=== PATIENT | female | born 1950 | race Caucasian/White ===

== ENCOUNTER 2024-10-07 08:48 | Day surgery (SDC) | payer MEDICARE, BC, SELFPAY ==
[2024-10-07] VITALS (11 sets, daily range): BP systolic 94–158; BP diastolic 59–88; PULSE 80–97; RESP 16; TEMP 36.2–37.1; O2SAT 94–100; BMI 30.9
--- OUTSIDE RECORDS SUMMARY | 2024-10-07 08:52 | XMS_ITS | Data Portability ---
Author Organization [place] [facility] Address [address] [address] [place] [address] Care Team Providers Care Barrel Finisher Name Role Phone JUANLYDIA Primary Care Provider [phone] Assessment Encounter Date Assessment Date Assessment LastModified by Organization Details LastModified Time 09/23/2019 09/23/2019 Today I spent a considerable amount of time discussing the patients past medical and personal history, as well as performing a physical examination all of which is documented in it's entirety in the electronic health record. I reviewed the findings with the patient. Treatment options to address her complaints were discussed. Today no imaging was obtained. I've not recommended advanced imaging with CT or MRI. From a treatment perspective I've recommended adding 300 mg of gabapentin midmorning. Currently she is taking one to two tablets of Tylenol with every dose of gabapentin. I suggested she try taking the additional gabapentin 300 mg without tylenol. She can take up to 1800 mg daily in divided doses. I also suggested she keep a pain journal of her level of pain, intensity and duration with added gabapentin use. JUANY was checked today and no adjustments were made to the appliance. I have suggested she send me an update in about a month regarding her symptoms. Follow-up was recommended in a year or sooner if needed. Today greater than 50% of the 25 minute visit was spent counseling and coordinating care. This may have included a review of the diagnosis, contributing factors, medication MOA, risks, side effects, home self-management strategies and the limitations and expectations. [email or web address] Not available 09/23/2019 13:29:41 09/19/2020 09/19/2020 Today I reviewed the diagnosis, contributing factors and treatment options. I reviewed and reinforced continued use of self care and home exercises. I've encouraged daily home care use which may consist of heat and ice compresses, oral habit reduction and relaxation techniques. The intraoral appliance did not require additional adjustment. I suggested that Sarai consult with Dr. 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 Today a prescription for gabapentin 400 mg qid, was provided to the patient. The risks and benefits associated with the prescribed medication was discussed with the patient today. Patient was asked to discontinue medication intake and return to clinic if significant side effects were noted from the medication. I've suggested that the patient return for follow-up care annually or PRN sooner. Today greater than 50% of the 25 minute visit was spent counseling and coordinating care. This may have included a review of the diagnosis, contributing factors, home self-management strategies and the limitations and expectations. Not available 09/19/2020 19:36:20 01/17/2021 01/17/2021 Today I reviewed the diagnosis, contributing factors and treatment options. I reviewed and reinforced continued use of self care and home exercises. I've encouraged daily home care use which may consist of heat and ice compresses, oral habit reduction and relaxation techniques. The intraoral appliance did not require additional adjustment. I explained to Sarai that based on today's exam, I would recommend she consult with an in house counsel to rule-out cracked tooth #3. I explained that myofascial pain could also contribute to tooth pain but that I would first rule out tooth pathology of #3. Sarai will contact her dentist for a referral to an in house counsel. Sarai is still interested in consulting with Dr. 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 History today was obtained from the patient. The patient has 5+ diagnoses they would like to address. Their symptoms are chronic. This case is moderate complexity because of multiple diagnoses with chronic symptoms. Data reviewed included: procedure documentation. Risk of complications including disease progression were discussed. Today time spent may have included a review of past records, history taking, review of diagnoses, contributing factors, treatment plan, diagnostic testing, prognosis, expectations, risks and complications of treatment/no treatment, discussions with other providers and completing documentation was 35 minutes. Not available 01/20/2021 14:00:14 Plan of Treatment Reminders Order Date Submit Date Provider Last Modified By Organization Details Last Modified Time Details Appointments None recorded. Lab None recorded. Referral neurologis t referral 2019 [email or web address] Not available 0 15:19:41 Procedures None recorded. Surgeries None recorded. Imaging None recorded. Medication Orders gabapentin 300 mg capsule 2019 [id number], [address] [place], [place], [id number], 0 15:19:52 tramadol 50 mg tablet 2020 [id number], [address] [place], [place], [phone], 1 08:44:03 Patient TargetsNo targets recorded. Patient Instructions Encounter Date Encounter Id Patient Instructions Last Modified By Organization Details Last Modified Time 04/25/2021 [id number] Sarai Manning is a 71 year-old female with over 10 years of localized neuropathic pain in the right lower jaw region. The pain is located approximately where she had a crown procedure a few weeks before. I suspect there was some injury to a branch of the Mandibular trigeminal nerve. She gets pretty good relief with acetaminophen taking 2 ES tabs BID. but that lasts just a few hours. She would like to get to the bottom of the problem if possible and would like to not have to take Tylenol every day if possible. She has some T3 she takes very rarely that is not very effective and asked about some resuce med that might work better than Tyklenol or codeine. I offered a trial of tramadol to use rarely (e.g. #20 per month) for more severe flares of pain. Wew will get an MRI scan of the brain looking for trigeminal nerve compression or injury. future considerations could include an alternative medication like oxcarbazepine or carbamazepine. [email or web address] Not available 04/29/2021 09:10:15 08/29/2021 [id number] I reviewed her M RI scan report of the brain with her today. It was normal. [email or web address] Not available 08/29/2021 13:07:21 Stable neuropath ic pain affecting the right lower jaw line following crown and root canal in 2009. Acetaminophen is working pretty well. I will discharge her from clinic for now, but if pain increases or she wants to pursue other meds like CBZ or Trileptal, she can call. [email or web address] Not available 08/29/2021 13:08:18 Reason for Referral Neurologist Referral for Tri geminal nerve disorder Evaluation of current meds. Has been using for years without improvement. 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 7 11:08:15 Open bite 21766626 Active [address] [facility] 7 11:08:27 Toothache 57044744 Active 2020 #[address] [facility] 1 13:59:44 Trigeminal nerve disorder 76232465 Active 2014 Not Available [facility] 6 02:32:51 Fibromyosi tis 30846969 Active 2012 Not Available [facility] 6 02:43:53 Arthralgia of temporoman dibular joint 64033903 Active 2014 Not Available [facility] 6 02:43:53 Finding of sensation by site 924820277 Completed 201408/31/[address] [facility] 8 13:37:45 Problem Notes None recorded. Procedures Surgical History Date Name Laterality Status Provider Name and Address Organization Details Recorded Time 07/17/20 17 Oral appliance completed [facility] 07/17/2017 15:03:29 01/02/20 09 Other completed Mike Am[address] [facility] 01/17/2021 15:35:12 Warba Teeth Extraction completed Luciana Roberts [facility] 08/29/2021 12:38:51 [facility] 07/03/2017 10:34:[address] [facility] 07/03/2017 10:34:17 Elbow arthroscopy/surge ry completed Claramolly Crouch [facility] 08/26/2017 14:30:29 Imaging Results None recorded. Procedure Notes None recorded. Medical Equipment None Reported. Allergies Allergen ID Allergen Name Allergen Category Reaction Reaction Severity Criticality Documentation Date Start Date Code Code System Note Provider Name and Address Organization Details Recorded Time 46397 Substance with sulfonami de structure and antibacte rial mechanism of action (substanc e) medicatio n Not available Not available Not available 10/10/2016 64661 8003 SNOMED Not Available [facility] 6 06:37:57 Medications Name Sig Start Date Stop Date Status Note LastModified by Organization Details LastModified Time medication refill request 09/23 completed Not Available Not Available Not Available cyclobenzap rine 10 mg tablet TAKE 1 TABLET BY MOUTH EVERY NIGHT AT BEDTIME NEEDED active Not Available Not Available No t Available latanoprost 0.005 % eye drops INSTILL 1 DROP IN LEFT EYE EVERY EVENING active Not Available Not Available No t Available pravastatin 40 mg tablet TAKE 1 TABLET BY MOUTH DAILY WITH THE EVENING MEAL active Not Available Not Available No t Available meloxicam 15 mg tablet 04/25 completed Not Available Not Available Not Available acetaminoph en 300 mg-codeine 30 mg tablet PRN active Not Available Not Available Not Available tramadol 50 mg tablet TAKE 1 TABLET BY MOUTH EVERY 6 HOURS NEEDED active Not Available Not Available No t Available amoxicillin 875 mg tablet TAKE 1 TABLET BY MOUTH TWICE DAILY 08/23 completed Not Available Not Available Not Available prednisolon e acetate 1 % eye drops,suspe nsion prn active Not Available Not Available Not Available amitriptyli ne 10 mg tablet Take 1 tablet every day by oral route at bedtime. 08/21 completed Not Available Not Available Not Available benzonatate 100 mg capsule 08/21 completed Not Available Not Available Not Available lisinopril 10 mg tablet TAKE 1 TABLET BY MOUTH EVERY DAY active Not Available Not Available No t Available gabapentin 300 mg capsule TAKE 1 CAPSULE BY MOUTH BID 08/23 completed Not Available Not Available Not Available triamterene 37.5 mg-hydrochl orothiazide 25 mg tablet TAKE 1 TABLET BY MOUTH EVERY DAY active Not Available Not Available No t Available fluocinonid e 0.05 % topical solution JOSIANE EXT AA BID active Not Available Not Available No t Available fluocinonid e 0.05 % topical cream active Not Available Not Available Not Available atropine 1 % eye drops PRN active Not Available Not Available Not Available levothyroxi ne 112 mcg tablet TAKE 1 TABLET BY MOUTH ONCE A DAY active Not Available Not Available No t Available amoxicillin 875 mg-potassiu m clavulanate 125 mg tablet 08/21 completed Not Available Not Available Not Available metronidazo le 1 % topical gel APPLY EXTERNALL Y TO THE AFFECTED AREA ONCE EVERY DAY active Not Available Not Available No t Available Shingrix (PF) 50 mcg/0.5 mL intramuscul ar suspension, kit 09/23 completed Not Available Not Available Not Available Vitals Date Recorded Heart rate Systolic blood pressure Diastolic blood pressure Provider Name and Address Organization Details Last Updated DateTime 09/23/2019 97 /min 144 mm[Hg] 91 mm[Hg] Mike Amador [facility] 09/23/2019 12:17:00 Date Recorded Body height Body mass index (BMI) Body weight Body temperature Heart rate Systolic blood pressure Diastolic blood pressure Provider Name and Address Organization Details Last Updated DateTime 0 170.18 cm 29.8 kg/m2 09048.5 5 g 97 [degF] 100 /min 148 mm[Hg] 87 mm[Hg] Bassem Lopez [facility] 0 14:09:37 Date Recorded Body height Body temperature Heart rate Systolic blood pressure Diastolic blood pressure Provider Name and Address Organization Details Last Updated DateTime 01/17/2021 170.18 cm 97.3 [degF] 95 /min 148 mm[Hg] 95 mm[Hg] Mike Amador [facility] 1 15:34:54 Date Recorded Body height Body temperature Body mass index (BMI) Body weight Heart rate Systolic blood pressure Diastolic blood pressure Provider Name and Address Organization Details Last Updated DateTime 1 170.18 cm 97.3 [degF] 29 kg/m2 31524.5 9 g 99 /min 137 mm[Hg] 78 mm[Hg] Luciana Roberts [facility] 1 14:43:26 Date Recorded Body height Body mass index (BMI) Body weight Heart rate Body temperature Systolic blood pressure Diastolic blood pressure Provider Name and Address Organization Details Last Updated DateTime 1 170.18 cm 29 kg/m2 92119.5 9 g 110 /min 97.6 [degF] 148 mm[Hg] 84 mm[Hg] Luciana Roberts [facility] 12:38:20 Social History Question Answer Notes LastModified by Organizat ion Details LastModified Time Tobacco Smoking Status [facility] 08/26/2017 14:26:17 What Is Your Level Of Alcohol Consumption? Occasional Information not available 08/26/2017 Auto Related Injury? No Information not available 08/29/2021 What Is Your Level Of Caffeine Consumption? Moderate Information not available 08/26/2017 Are You Currently Employed? No Information not available 08/26/2017 Currently No Information not available 08/29/2021 What Type Of Diet Are You Following? REGULAR Information not available 08/26/2017 Do You Reside In Or Have You Traveled To An Area Where Ebola Virus Transmission Is Active? No Information not available 08/26/2017 Education 4 Year College Informatio n not available 08/29/2021 Marital Status Informatio n not available 08/26/2017 What Was The Date Of Your Most Recent Tobacco Screening? 08/31/2018 Information not available 08/29/2021 How Many Children Do You Have? 0 Information not available 08/26/2017 General Stress Level Low Information not available 08/29/2021 Do You Use Any Illicit Or Recreational Drugs? No Information not available 08/26/2017 Work Related Injury? No Information not available 08/29/2021 Sex: Unknown Functional Status Question Answer Note LastModified by Organizat ion Details LastModified Time What is your exercise level? Occasional Information not available 08/26/2017 Mental Status None recorded. Family History Relationship Description Onset Age of this Age Resolved Age Notes LastModified by Organization Details LastModified Time Mother Hypertensive disorder [email or web address] Not available 2016 14:24:20 Mother Arthritis [email or web address] Not availab le 08/26/2017 14:24:20 Father Diabetes mellitus [email or web address] Not available 2016 14:24:20 Father Heart disease 79 [email or web address] Not available 2016 14:24:21 Medical History Condition Response Coronary Artery Disease N Other N Gout N Chronic fatigue syndrome N Hyperthyroidism N Premenstrual syndrome (PMS) N MRSA N Emphysema N Head Trauma/Injury N Irritable bowel syndrome Y Depression N COPD N Glaucoma Y Lung Disease N Hypothyroidism Y Pneumonia N Pacemaker N Obstructive Sleep Apnea N Anxiety Disorder N Muscle, Joint, or Bone Problems N Autoimmune disease N Vision or Eye Problems N Arthritis Y Serious Illness or Injuries N Acid Reflux (GERD) Y Cancer N Stroke N Neck Injury N Eating disorder N Back Injury N High Cholesterol N Neurologic Disorder N History of chemotherapy N Liver Disease N Organ Transplant N Rheumatoid Arthritis N Fibromyalgia Y Headaches N Kidney Disease N Allergies/Hayfever N Post traumatic stress disorder (PTSD) N Parkinson's Disease N Migraines N Brain Tumors N Anemia N Multiple Sclerosis N Immune System Disorder N Meningitis N Pancreatic disease N Heart Attack (NE) N Stomach Ulcers N Diabetes N Back pain N Bleeding Disorder N Seizures/Epilepsy N Sjogren's syndrome N Mental Health Concerns N Tuberculosis N AIDS/HIV N Hyperlipidemia N History of radiation therapy N Dementia N Asthma N Physical or sexual abuse N Substance Abuse N Psoriasis N Peripheral Vascular Disease N Reflux/GERD N Vertigo N Sleep Disorder N Hepatitis N Aneurysm N Neuropathy N Heart Disease N Pulmonary Embolism N Hypertension Y Osteoporosis N Gynecological HistoryNo gynecological history recorded. Obstetrics History GPAL:G 0 P 0 0 0 0 Immunizations Vaccine Type Date Status Provider Name and Address Organization Details Recorded Time Influenza, split virus, trivalent, preservative 10/01/2016 completed ADRIANA [facility] 04/25/2021 14:43:58 pneumococcal, unspecified formulation 04/25/[address] [facility] 04/25/2021 14:43:58 Influenza, split virus, quadrivalent, preservative 09/17/[address] [facility] 08/29/2021 12:21:24 Influenza, split virus, quadrivalent, preservative 08/17/[address] [facility] 08/29/2021 12:21:24 Influenza, split virus, trivalent, preservative 08/17/[address] [facility] 04/25/2021 14:43:58 pneumococcal, unspecified formulation 04/27/[address] [facility] 04/25/2021 14:43:58 SARS-COV-2 (COVID-19) vaccine, UNSPECIFIED 02/10/[address] [facility] 08/29/2021 12:21:24 SARS-COV-2 (COVID-19) vaccine, UNSPECIFIED 01/27/[address] [facility] 08/29/2021 12:21:24 Past Encounters Encounter ID Performer Location Encounter Start Date Encounter Closed Date Diagnosis/Indication Diagnosis SNOMED-CT Code Diagnosis ICD10 Code [id number] [facility] [address] ADRIANA DOMINGUEZ [id number] 09/11/2016 13:55:04 09/13/2016 10:24:16 Atypical facial pain 93134261 G50.1 Malocclusion of teeth 47 607153 M26.4 [id number] [facility] Patrick DELISAS Shwetha saunders [address] ADRIANA [place] [id number] 07/03/2017 10:24:16 07/03/2017 11:10:42 Trigeminal nerve disorder 65765415 G50.9 Atypical facial pain 713 53108 G50.1 Localized osteoarthrosis 17009490 M19.90 Open bite [id number] M26.4 [id number] Fadia Patrick DDS [place] [address] KERRILULADRIANA MONTOYA [id number] 07/17/2017 14:57:46 07/17/2017 15:28:14 Arthralgia of temporomandibular joint 11458045 M26.629 Trigeminal nerve disorder 72771898 G50.9 [id number] [facility] [place] [address] [place] [id number] 08/26/2017 14:21:37 08/26/2017 16:03:55 Arthralgia of temporomandibular joint 81043973 M26.629 Trigeminal nerve disorder 01903999 G50.9 [id number] [facility] D[facility] [place] [address] ADRIANA [place] [id number] 08/31/2018 12:23:00 08/31/2018 14:46:26 Atypical facial pain 17932619 G50.1 Trigeminal nerve disorder 54606140 G50.9 Arthralgia of temporomandibular joint 04341941 M26.629 [id number] Ana Marr [place] e [address] [place] [id number] 09/23/2019 11:55:33 09/23/2019 13:31:03 Fibromyositis 58669007 M79.7 Localized osteoarthrosis 31841300 M19.90 Open bite [id number] M26.4 Trigeminal nerve disorder 28718298 G50.9 Atypical facial pain 713 63273 G50.1 Pain in face 26238722 R5 1 [id number] Rosalie Velásquez [place] [address] [place] [id number] 09/19/2020 13:58:42 09/19/2020 14:54:00 Atypical facial pain 42150633 G50.1 Trigeminal nerve disorder 63215905 G50.9 Open bite [id number] M26.4 Localized osteoarthrosis 75682581 M19.90 Arthralgia of temporomandibular joint 97689366 M26.629 Articular disc disorder of temporomandibular joint 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 M26.631 Myofascial pain 83731964 9 M79.11 [id number] Rosalie Kong[place]o e [address] [place] [id number] 01/17/2021 15:25:46 01/17/2021 16:30:39 Fibromyositis 85780908 M79.7 Localized osteoarthrosis 55579620 M19.90 Open bite 05427066 M26.4 Trigeminal nerve disorder 26817454 G50.9 Atypical facial pain 713 73275 G50.1 Arthralgia of temporomandibular joint 74084477 M26.629 Toothache 75863589 K08.8 9 [id number] Juan M Kong[place]o e [address] [place] [id number] 04/25/2021 14:22:45 04/29/2021 23:23:49 Trigeminal nerve disorder 84800990 G50.9 [id number] Juan M [place] [address] [place] [id number] 08/29/2021 12:21:09 08/29/2021 13:00:49 Fibromyositis 21584011 M79.7 Trigeminal nerve disorder 67854915 G50.9 Atypical facial pain 713 07916 G50.1 Health Concerns Section Related Observation LastModified by Organization Detai ls LastModified Time None Recorded Concern Status LastModified by Organization Details LastModified Time None Recorded Advance Directives Directive None Recorded Payers Encounter Date Sequence Insurance Name Policy Number Policy Lombardo Covered Member ID Lombardo Member ID Guarantor Name 09/23/2019 2 [place] [id number] Sarai Manning [id number] Sarai Manning 09/23/2019 1 [place] [employer] Sarai Manning [id number] Sarai Manning 09/19/2020 2 [place] [id number] Sarai Manning [id number] Sarai Manning 09/19/2020 1 [place] [employer] Sarai M Manning [id number] Sarai Manning 01/17/2021 2 [place] [id number] Sarai M Manning [id number] Sarai Manning 01/17/2021 1 [place] [employer] Sarai M Manning [id number] Sarai Manning 04/25/2021 2 [place] [id number] Sarai M Manning [id number] Sarai Manning 04/25/2021 1 [place] [employer] Sarai M Manning [id number] 1 Sarai Manning 08/29/2021 2 [place] [id number] Sarai M Manning [id number] Sarai Manning 08/29/2021 1 [place] [employer] Sarai M Manning [id number] 1 Sarai Manning Notes Date Note Type Note Provider Name and Address Organization Details Recorded Time 09/23/2019 text/html Patient presents today for follow-up. They report jaw symptoms which are {{improved* worsened unchanged resolved} } since the previous visit. Symptoms and pertinent information along with prior data was reviewed, updated and documented in the patient history of present illness. Patient rates the pain intensity as {{0 1 2 3 4* 5 6 7 8 9 10}} on a scale of 0 to 10. Patient is {{engaged in* not engaged in partially engaged in completed discont inued}} active treatment at this time.Still having pain on the lower right, had a crown done in 2018 but still having pain. Tylenol and Gabapentin three times daily. Patient is wearing a repositioning splint every night ADRIANA Hoang - [facility] 09/23/2019 13:30:16 09/19/2020 text/html Patient presents today for follow-up. They report jaw symptoms which are {{improved worsened unchanged* resolved} } since the previous visit. Symptoms and pertinent information along with prior data was reviewed, updated and documented in the patient history of present illness. Patient rates the pain intensity as {{5-9# 0 1 2 3 4 5 6 7 8 9 10}} on a scale of 0 to 10. Patient is {{engaged in* not engaged in partially engaged in completed discont inued}} active treatment at this time. Sarai reports she developed pain on her lower right jaw after root canal treatment in 2008. The pain was constant with an achy or burning sensation. She was diagnosed with trigeminal nerve disorder. She trialed amitriptyline with no change in symptoms. In 2013 she began taking 300 mg of Gabapentin 3x daily in addition to 1300 mg of Tylenol Arthritis in the morning and 1000 mg of Tylenol in the evening. In September,, Dr. Marr instructed Sarai to add 300 mg of gabapentin and take away a dose of Tylenol. Sarai's pain has remained the same. She continues having a constant achy and burning sensation on the lower right. Pain will increase with change of season. She denies having a brain MRI. Sarai reports that she was wearing a mandibular stabilization device for TMD in 2016 but developed an open bite. Dr. Nguyen then fabricated a HARRINGTON device. She has continued wearing the HARRINGTON device. ADRIANA Adames - [facility] 09/19/2020 19:36:41 01/17/2021 text/html Patient presents today for follow-up. They report jaw symptoms which are {{improved worsened* unchanged resolved} } since the previous visit. Symptoms and pertinent information along with prior data was reviewed, updated and documented in the patient history of present illness. Patient rates the pain intensity as {{0 1 2 3 4 5 6 7* 8 9 10}} on a scale of 0 to 10. Patient is {{engaged in not engaged in* partially engaged in completed discont inued}} active treatment at this time. Sarai states that last , her trigeminal neuropathy on the lower right started to flare-up. She took vicodin and used cold packs to control the pain. On Friday, she began experiencing a toothache on the upper right. Her dentist was unavailable for an appointment, so she saw a different dentist yesterday who took xrays and determined that her pain was not of odontogenic origin. The dentist told her that her splint may be putting pressure on the tooth and that she should return to our clinic for evaluation. ADRIANA Adames - [facility] 01/20/2021 14:01:44 04/25/2021 text/html Sarai is a 71 y. o. female presenting for daily constant pain in the lower right jaw/gum area pain that started around [id number]. She had a crown and then later a root canal in 2009, which did not take care of the pain. She is referred by Dr Velásquez. The pain is described as burning and sharp ache which lasted 2 weeks in December and 5 days in March. Her daily pain levels are around a 5-7/10 without Tylenol. Tylenol will get rid of the pain for about 3 hours if that. She is taking Gabapentin 300 mg BID instead of QID since there is no difference. Previously prescribed by Dr. Nguyen, now Dr. Velásquez. She has had a panorex but no other imaging, she is interested in getting a CT cone beam or imaging to look at the nerves. She has not seen any other providers except for her DDS who referred her here originally in . 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 -------- REFERRED BY: Dr Velásquez REASON FOR CONSULTATION: Neuralgic right lower jaw pain PAIN HISTORY: As summarized above. Sarai Manning is a 71 year-old female who developed localized right lower jaw pain about 2 -3 weeks following a crown procedure on a right lower tooth in 2009. Then had a root canal done which did not help. Becker is localized to a small 2 inch patch along the lower jaw. The pain feels like it is inside the mouth and is a burning sensation. It is best controlled with Tylenol (better than with ibuprofen or meloxicam). When intense, she describes it as a solid pain. She notes it can change with certain seasons, and can occur in bouts lasting several days. Gabapentin was not effective even up to 1800 mg per day. Nortriptyline was also not effective. She has not taken carbamazepine or oxcarbazepine. She does not identify any particular pain triggers such as talking, chewing, brushing teeth etc. HABITS: not sure if clenching. No tobacco. Occasional alcohol use . No recreational drug use. Sleep is fragmented. PAST MEDICAL/SURGICAL HX: 2 C sections. Fibromyalgia taking cyclobenzaprine. HTN, Tahir Fundoplication for GERD. Endometriosis s/p laparoscopies. SOCIAL HX: . 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 She has a Sheltie dog. ADRIANA Renee - [facility] 04/29/2021 09:11:02 08/29/2021 text/html Sarai is a 71 y. o. female presenting for routine follow up for daily constant pain in the lower right jaw/gum area pain that started around [id number]. It started after a crown procedure and later a root canal. She uses tylenol daily for a max of 2300 mg daily. Takes extended release tylenol 1300 mg in the AM and then 1000mg Tylenol in the PM.She will use Advil for higher pain levels. She has not used the tramadol as she is waiting for higher pain levels which usually come with seasonal changes. She is no longer taking gabapentin. She found out it was not helping over the years. 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 We discussed various treatment options including a trial of Tegretol or trileptal, but she is managing OK with the acetaminophen and doesn't feel she needs to trial another medication with greater potential for adverse effects. ADRIANA Renee - [facility] 08/29/2021 13:09:10 OBGyn Episode No OBEpisode recorded.
--- OUTSIDE RECORDS SUMMARY | 2024-10-07 08:52 | XMS_ITS | Clinical Summary ---
Author Organization [facility] Address [place], [place] [address] Care Team Providers Care Per Diem Nurse Name Role Phone Christiane Aaron MD Primary Care Provider [phone] Allergies Active Allergy Reactions Criticality Noted Date Comments Lisinopril Cough 04/23/2022 Sulfa (Sulfonamide Antibiotics) 07/2007 Medications Medication Sig Dispensed Refills Start Date End Date Status GLUCOSAMINE CHONDROITIN SMCONC 750 MG-600 MG-55 MG-5 MG TAB 1 qd 0 11/28/2006 Active MULTIVITAMIN TAB take 1 tablet by oral route once daily with food 0 11/28/2006 Active lactobacillus rhamnosus, GG, (PROBIOTIC) 10 billion cell capsule Take by mouth. Once daily 0 10/17/2010 Active latanoprost (XALATAN) 0.005 % ophthalmic solution Place 1 Drop into left eye at bedtime. 04/03/2015 Active owumy-2-UTI-EPA-fis h oil (Fish OiL) 300-1,000 mg capsule Take 1 Capsule by mouth once daily. Active ivermectin (Soolantra) 1 % topical cream Apply topically to affected area(s). 0 12/20/2022 Active fluocinonide 0.05 TOPICAL (LIDEX) 0.05 % external solutionIndications :Dermatitis of both ear canals Apply topically to affected area(s) two times daily. 60 mL 3 04/30/2023 Active cyclobenzaprine (FLEXERIL) 10 mg tabletIndications:F ibromyalgia TAKE 1 TABLET BY MOUTH EVERY NIGHT AT BEDTIME NEEDED 90 Tablet 3 04/02/2024 Active amLODIPine (NORVASC) 5 mg tabletIndications:E ssential hypertension Take 1 Tablet (5 mg) by mouth once daily. 90 Tablet 3 05/17/2024 Active pravastatin (PRAVACHOL) 40 mg tabletIndications:M ixed hyperlipidemia Take 1 Tablet (40 mg) by mouth once daily with evening meal. 90 Tablet 3 05/17/2024 Active triamterene-hydroch lorothiazide, 37.5-25 mg, (MAXZIDE-25) 37.5-25 mg tabletIndications:E ssential hypertension Take 1 Tablet by mouth once daily. 90 Tablet 3 05/17/2024 Active acetaminophen-codei ne (TYLENOL #3) 300-30 mg per tabletIndications:B ilateral low back pain without sciatica, unspecified chronicity Take 1-2 Tablets by mouth every 6 hours if needed for Pain. Max acetaminophen dose: 4000mg in 24 hrs. 60 Tablet 3 05/17/2024 Active levothyroxine (SYNTHROID) 112 mcg tabletIndications:A cquired hypothyroidism TAKE 1 TABLET(112 MCG) BY MOUTH DAILY BEFORE BREAKFAST 90 Tablet 3 06/04/2024 Active valsartan (DIOVAN) 320 mg tabletIndications:H ypertension TAKE 1 TABLET(320 MG) BY MOUTH EVERY DAY 90 Tablet 3 06/04/2024 Active pantoprazole (PROTONIX) 40 mg delayed-release tabletIndications:G astroesophageal reflux disease with esophagitis without hemorrhage Take 1 Tablet (40 mg) by mouth once daily before a meal. 90 Tablet 3 08/12/2024 Active ketoconazole 2% shampoo (NIZORAL) 2 % shampoo WASH SCALP AND EARS TWO TO THREE TIMES WEEKLY. LATHER AND LET SIT 3-5 MINUTES BEFORE RINSING. 07/16/2024 Active fluocinonide 0.05% topical (LIDEX) 0.05 % creamIndications:De rmatitis Apply topically to affected area(s) 2 times daily. 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 spondylosis Mixed hyperlipidemia Pain in lower jaw Overview (10/17/2010): Chronic, right sided. Mild TMJ, wears mouth guard ? Nerve problem- on gabapentin Fibromyalgia Resolved Problems Problem Noted Date Diagnosed Date Resolved Date Achilles tendinitis of right lower extremity 5 04/23/2021 Adhesive capsulitis of shoulder 03/01/2011 04/07/2013 Overview (04/07/2013): left Nikky Care Contract 10/17/2010 011 Overview (10/17/2010): This patient, PCP and Care Guide have signed a letter agreeing on a set of goals for diabetes, hypertension and/or CHF. Please look for [facility] Goal Contract in Chart Review/ Letters and support this effort. Please direct questions to Care Guide Zeny Curry Phone number [phone] Esophageal reflux 11/25/2006 01/10/2010 Overview (12/25/2008): EGD 04/24: reflux changes, no Barretts Encounter for screening colonoscopy 04/21/2020 Encounters Date Type Department Care Team Description 09/29/2024 1:00 PM GRINDER SET UP OPERATOR THREAD Office Visit [facility] [address] [place] [address] Jessie Matamoros MD Preoperative Exam 09/29/2024 Travel 09/24/2024 Travel 09/01/2024 9:45 AM CDT Nurse/Clinic Staff Only [facility] [address] [place] [address] Immunization/Injecti on (COVID-19 ); Immunization/Injecti on 09/01/2024 Travel 08/31/2024 1:29 PM CDT - 08/31/2024 11:59 PM CDT Hospital Encounter [facility] [address] [place] [address] Madan Lima MD Pain in joint of left knee 08/30/2024 Travel 08/06/2024 Refill [facility] [address] [place] [address] Christiane Aaron MD Refill Request (Pantoprazole) 07/13/2024 2:41 PM CDT - 07/13/2024 11:59 PM CDT Hospital Encounter [facility] [address] [place] [address] Latonia Huber NP Left leg swelling 07/13/2024 1:45 PM CDT Ancillary Procedure [facility] [address] [place] [address] 07/13/2024 12:50 PM CDT Office Visit [facility] [address] [place] [address] Latonia Huber NP Leg Pain/problem (Behind left knee) 07/13/2024 Telephone [facility] Orthoped[facility] [address] [address] Dianne Roque Appointment 07/13/2024 Travel 07/13/2024 Nurse Triage [facility] [address] [place] [address] Christiane Aaron MD Knee Pain/problem 07/13/[address] [address] Christiane Aaron MD Error-please disregard from Last 3 Months Immunizations Name Administration Dates Next Due AMB Influenza, IIV3 (Age >=3 years)(Flu Clinic Only) 09/23/2013,09/20/2010 COVID-19 VACCINE SPIKEVAX (M ODERNA 50MCG/0.5ML) 12YO+ PFS 09/01/2024,09/24/2023 COVID-19 vaccine (Pfizer-Bio NTech 30mcg/0.3mL) 12YO+ BIVALENT PF, MDV 04/30/2023,09/11/2022 COVID-19 vaccine (Vital Connect-HealthWave NTech 30mcg/0.3mL) 12YO+ ERIK-SUCROSE PF, MDV 06/10/2022 COVID-19 vaccine (Vital Connect-Bio NTech 30mcg/0.3mL) PF, MDV 08/24/2021,02/10/2021,01/20/2021 Influenza A (H1N1), Inactiva jennifer (Age >=3 Years) 12/11/2009 Influenza Virus, Unspecified 08/17/2020,09/17/20 19,10/01/2016 Influenza, IIV3 (Age 6-35 mos) 09/20/2011 Influenza, IIV3 (Age >=3 years) 09/23/20 13,09/21/2012,09/20/2011,2009,09/17/2007 Influenza, IIV4 10/01/2016,10/11/2015,09/26/2014 Influenza, Inactivated AIIV4 (Age 65+ Years) Preserv Free 09/24/2023,09/11/2022,09/03/2021,2019 Influenza, Inactivated IIV3 (Age 65+ Years) Preserv Free 09/01/2024,10/01/2019,09/17/2018,2016 Pneumococcal Poly,23-Valent (Pneumovax) 04/27/2018 Pneumococcal conj 13-Valent (Prevnar 13) 04/25/2017 Pneumococcal, Unspecified 04/25/2017 Tdap 05/03/2023,01/29/2012 Zoster (Shingrix-RZV, recombinant) 04/22/2019, Zoster (Zostavax-ZVL, live) 04/06/2012 Family History Medical History Relation Name Comments Heart Disease Brother [place], 50 Diabetes Father Heart Disease Father age 91, C HF, [place] Heart Disease Mother multiple myelo ma Cancer-breast No Family History Relation Name Status Comments Brother Father (Age 91) Mother (Age 85) Social History Tobacco Use Types Packs/Day Years Used Date Smoking Tobacco: Never Smokeless Tobacco: Never Tobacco Cessation:Counseling Given: Not Answered Comments: quit smokes a pipe Alcohol Use Standard Drinks/Week Comments Yes 0 (1 standard drink = 0.6 oz pur e alcohol) occasional PHQ-2 Answer Date Recorded PHQ-2 TOTAL SCORE 0 05/17/2024 Social Connections Answer Date Recorded Do you often feel lonely or isolated from those around you? 0 05/17/2024 Financial Resource Strain Answer Date R ecorded Difficulty of Paying Living Expenses 3 05/17/2024 Difficulty of Paying Living Expenses Not on file 05/17/2024 Food Insecurity Answer Date Recorded Do you worry your food will run out before you are able to buy more? 1 05/17/2024 Transportation Needs Answer Date Record ed Does lack of transportation keep you from medica l appointments? 1 05/17/2024 Does lack of transportation keep you from work, meetings or getting things that you need? 1 05/17/2024 Housing Stability Answer Date Recorded What is your housing situation today? 1 05/17/2024 Sex and Gender Information Value Date Recorded Sex Assigned at Not on file Gender Identity Not on file Sexual Orientation Not on file Obstetrics History Para Term AB IAB SAB Ectopic Multiple Livin g Live Births 0 0 Last Filed Vital Signs Vital Sign Reading Time Taken Comments Blood Pressure 124/72 09/29/2024 1:03 PM GRINDER SET UP OPERATOR THREAD Pulse 79 09/29/2024 1:03 PM GRINDER SET UP OPERATOR THREAD Temperature 36.8 C (98.3 F) 09/29/2024 1:03 PM GRINDER SET UP OPERATOR THREAD Respiratory Rate 18 07/13/2024 1:19 PM CDT Oxygen Saturation 97% 09/29/2024 1:03 PM GRINDER SET UP OPERATOR THREAD Inhaled Oxygen Concentration - - Weight 87.4 kg (192 lb 9.6 oz) 09/29/2024 1:03 P M GRINDER SET UP OPERATOR THREAD Height 167.6 cm (5' 6) 09/29/2024 1:03 PM GRINDER SET UP OPERATOR THREAD Body Mass Index 31.09 09/29/2024 1:03 PM GRINDER SET UP OPERATOR THREAD Plan of Treatment Upcoming Encounters Date Type Department Care Team (Late st Contact Info) Description 10/19/2024 1:45 PM GRINDER SET UP OPERATOR THREAD Appointment [address] [address] Bessie Villagmoez, PT [address] [place] [address] 10/21/2024 1:45 PM GRINDER SET UP OPERATOR THREAD Appointment [facility] [address] [address] Bessie Villagomez, PT [address] [place] [address] 10/26/2024 1:45 PM GRINDER SET UP OPERATOR THREAD Appointment [facility] [address] [address] Bessie Villagomez, PT [address] [place] [address] 11/02/2024 1:45 PM GRINDER SET UP OPERATOR THREAD Appointment [address] [address] Joyce Gómez, FLIGHT TEST DATA ACQUISITION TECHNICIAN [address] [place] [address] Health Maintenance Due Date Last Done Comments Mammogram for age 45-75 12/09/2024 12/09/19, 12/03/2023, 11/27/2022, Additional history exists Depression screening for age 12+ 05/17/2025 05/17/2024, 04/30/2023, 04/26/2022, Additional history exists Medicare Wellness for age 65+ 05/18/2025, 04/30/2023, 04/26/2022, Additional history exists BMI (ht and wt on same day) for age 18+ 09/29/2025 09/29/2024, 05/17/2024, 04/30/2023, Additional history exists Colonoscopy through age 75 09/02/202809/02, 08/06/2018, 06/13/2008, Additional history exists Lipids for age 45-75 05/17/2029 05/17/2024, 04/24/2023, 04/23/2022, Additional history exists Tetanus booster 05/03/2033 05/03/2023, 01/29/2012 DEXA/DXA scan for age 65+ Completed 04/25/2017, 08/2010 Hepatitis C screening for ag e 18-79 Completed 04/22/2018 Pneumococcal series for age 65+ Completed 04/27/2018, 04/25/2017, 04/25/2017 Zoster (shingles) series for age 50+ Completed 04/22/2019, 02/16/2019, 04/06/2012 Tdap Completed 05/03/2023, 01/29/2012 COVID-19 vaccine series Completed 09/01/20 24, 09/24/2023, 04/30/2023, Additional history exists Influenza for age 65+ Completed 09/01/2024 , 09/24/2023, 09/11/2022, Additional history exists Procedures Procedure Name Priority Date/Time Associated Diagnosis Comments BASIC METABOLIC PANEL Routine 09/29/2024 1:20 PM GRINDER SET UP OPERATOR THREAD Hypertension MR KNEE LEFT WO Routine 08/31/2024 2:09 PM CDT Pain in joint of left knee US VENOUS LOWER EXTREMITY LEFT STAT 07/13/2024 3:25 PM CDT Left leg swelling XR KNEE 3 VIEWS LEFT STAT 07/13/2024 2:02 PM CDT Left leg swelling CBC WITH AUTO DIFFERENTIAL STAT 07/13/2024 1:48 PM CDT Left leg swelling COMP METABOLIC PANEL STAT 07/13/2024 1:48 PM CDT Left leg swelling CBC WITH AUTO DIFFERENTIAL STAT 07/13/2024 1:48 PM CDT Left leg swelling LIPID PANEL W REFLEX MEASURED LDL Routine 05/17/2024 11:13 AM CDT Mixed hyperlipidemia XR MAMMO OMAR UNI ADDL VIEWS LEFT HARRY 12/09/2023 10:40 AM GRINDER SET UP OPERATOR THREAD Abnormal mammogram COLONOSCOPY 09/02/2023 8:59 AM CDT ANTI HCV Routine 04/22/2018 10:39 AM CDT Need for hepatitis C screening test XR DXA BONE DENSITY 2 SITES AXIAL Routine 04/25/2017 2:34 PM CDT Menopause from Last 3 Months or Most Recently Relevant to Health Maintenance Results * BASIC METABOLIC PANEL (09/29/2024 1:20 PM GRINDER SET UP OPERATOR THREAD) GLUCOSE 98 65 - 139 mg/dL [facility] Comment: Non-fasting reference interval UREA NITROGEN (BUN) 21 7 - 25 mg/dL [facility] CREATININE 0.66 0.60 - 1.00 mg/dL [facility] EGFR 93 > OR = 60 mL/min/1. 73m2 [facility] BUN/CREATININE RATIO SEE NOTE: 6 - 22 (calc) [facility] Comment: Not Reported: BUN and Creatinine are within reference range. SODIUM 141 135 - 146 mmol/L [facility] POTASSIUM 4.3 3.5 - 5.3 mmol/L [facility] CHLORIDE 99 98 - 110 mmol/L [facility] CARBON DIOXIDE 30 20 - 32 mmol/L [facility] ELECTROLYTE BALANCE 12 7 - 17 mmol/L (calc) [facility] CALCIUM 9.9 8.6 - 10.4 mg/dL [facility] Blood BLOOD SPECIMEN / Unknown 09/29/2024 1:20 PM GRINDER SET UP OPERATOR THREAD 09/29/2024 1:21 PM GRINDER SET UP OPERATOR THREAD Narrative [facility] - 09/30/2024 4:43 AM GRINDER SET UP OPERATOR THREAD FASTING:NO FASTING: NO Jessie Matamoros MD CHEMISTRY [facility] [address] [place] [address], [facility] [address] [place] [address] * MR KNEE LEFT WO (08/31/2024 2:09 PM CDT) Anatomical Region Laterality Modality KNEE L Magnetic Resonan ce 09/01/2024 9:29 AM CDT Impressions 09/01/2024 9:29 AM CDT 1. High-grade radial tear in the posterior horn of the medial meniscus near the root attachment with fossa hoop stress. 2. Mild chondromalacia centrally in the medial compartment. 3. Mild chondromalacia centrally and posteriorly in the lateral compartment. 4. Focal areas of moderate to full-thickness chondromalacia in the patellofemoral compartment. 5. Moderate to large knee joint effusion with mild synovitis and tiny popliteal cyst. Dictated by Og Vergara MD @ 09/01/2024 9:29:45 AM (Electronically Signed) Narrative 09/01/2024 9:29 AM CDT For Patients: As a result of the Cures Act, medical imaging exams and procedure reports are released immediately into your electronic medical record. You may view this report before your referring provider. If you have questions, please contact your health care provider. EXAM: MRI OF THE LEFT KNEE, WITHOUT CONTRAST CLINICAL INDICATION: Left knee pain. COMPARISON PLAIN FILMS: 07/13/2024. COMPARISON CROSS-SECTIONAL IMAGING STUDIES: None available at time of interpretation. TECHNICAL: Axial, sagittal and coronal T1, PD, PD FS and T2 FS images. Knee coil. FINDINGS: MEDIAL COMPARTMENT: Medial Meniscus: Oblique high-grade radial tear in the posterior horn of the medial meniscus near the root attachment. Loss of hoop stress with peripheral extrusion of the body of the medial meniscus. Articular Cartilage: Mild chondral thinning centrally (grade 2). - LATERAL COMPARTMENT: Lateral Meniscus: Normal size and morphology without tear. Articular Cartilage: Mild chondral thinning centrally in the femoral condyle and posteriorly in the tibia (grade 2). - PATELLOFEMORAL COMPARTMENT: Articular Cartilage: Scattered focal areas of moderate to full-thickness chondromalacia throughout the patella and trochlear groove (grade 3-4). - CRUCIATE LIGAMENTS: Anterior Cruciate Ligament: Normal. Posterior Cruciate Ligament: Normal. - MEDIAL COLLATERAL LIGAMENT AND POSTEROMEDIAL CORNER COMPLEX: Medial Collateral Ligament: Normal. Medial Head of the Gastrocnemius and Semimembranosus Tendons: Normal. - LATERAL COLLATERAL LIGAMENT COMPLEX AND POSTEROLATERAL CORNER COMPLEX: Fibular Collateral Ligament: Normal. Distal Biceps Femoris Tendon Complex: Normal. Iliotibial Band: Normal. Popliteus Tendon: Normal. Posterolateral Corner Capsule: Normal. - EXTENSOR MECHANISM: Distal Quadriceps Tendon: Normal. Patellar Tendon: Normal. Medial Patellar Retinaculum and Medial Patellofemoral Ligament: Normal. Lateral Patellar Retinaculum: Normal. Normal patellar alignment. No patella ramona. Normal trochlear depth. Normal lateral trochlear inclination. - JOINT SPACE: Effusion: Huuwnluf-wa-[id number] knee joint effusion. Mild synovitis. Tiny popliteal cyst. Joint Bodies: None seen. - OSSEOUS STRUCTURES: No fracture, marrow edema or marrow replacement process. - PERIARTICULAR SOFT TISSUES: Periarticular Cysts or Ganglia: None. Bursae: No prepatellar, superficial infrapatellar, deep infrapatellar, pes anserinus or semimembranosus/MCL bursitis. Musculature: No muscle atrophy or muscle edema. Subcutaneous and Soft Tissues: No subcutaneous or soft tissue mass, edema or fluid collection. Neurovascular Structures: Normal. Procedure Note Og Vergara MD - 09/01/2024 For Patients: As a result of the Cures Act, medical imagingexams and procedure reports are released immediately into your electronicmedical record. You may view this report before your referring provider.If you have questions, please contact your health care provider. EXAM: MRI OF THE LEFT KNEE, WITHOUT CONTRAST CLINICAL INDICATION: Left knee pain. COMPARISON PLAIN FILMS: 07/13/2024. COMPARISON CROSS-SECTIONAL IMAGING STUDIES: None available at time of interpretation. TECHNICAL: Axial, sagittal and coronal T1, PD, PD FS and T2 FS images. Knee coil. FINDINGS: MEDIAL COMPARTMENT: Medial Meniscus: Oblique high-grade radial tear in the posterior horn ofthe medial meniscus near the root attachment. Loss of hoop stress withperipheral extrusion of the body of the medial meniscus. Articular Cartilage: Mild chondral thinning centrally (grade 2). - LATERAL COMPARTMENT: Lateral Meniscus: Normal size and morphology without tear. Articular Cartilage: Mild chondral thinning centrally in the femoralcondyle and posteriorly in the tibia (grade 2). - PATELLOFEMORAL COMPARTMENT: Articular Cartilage: Scattered focal areas of moderate to full-thicknesschondromalacia throughout the patella and trochlear groove (grade 3-4). - CRUCIATE LIGAMENTS: Anterior Cruciate Ligament: Normal. Posterior Cruciate Ligament: Normal. - MEDIAL COLLATERAL LIGAMENT AND POSTEROMEDIAL CORNER COMPLEX: Medial Collateral Ligament: Normal. Medial Head of the Gastrocnemius and Semimembranosus Tendons: Normal. - LATERAL COLLATERAL LIGAMENT COMPLEX AND POSTEROLATERAL CORNER COMPLEX: Fibular Collateral Ligament: Normal. Distal Biceps Femoris Tendon Complex: Normal. Iliotibial Band: Normal. Popliteus Tendon: Normal. Posterolateral Corner Capsule: Normal. - EXTENSOR MECHANISM: Distal Quadriceps Tendon: Normal. Patellar Tendon: Normal. Medial Patellar Retinaculum and Medial Patellofemoral Ligament: Normal. Lateral Patellar Retinaculum: Normal. Normal patellar alignment. No patella ramona. Normal trochlear depth.Normal lateral trochlear inclination. - JOINT SPACE: Effusion: [id number] knee joint effusion. Mild synovitis. Tinypopliteal cyst. Joint Bodies: None seen. - OSSEOUS STRUCTURES: No fracture, marrow edema or marrow replacement process. - PERIARTICULAR SOFT TISSUES: Periarticular Cysts or Ganglia: None. Bursae: No prepatellar, superficial infrapatellar, deep infrapatellar, pesanserinus or semimembranosus/MCL bursitis. Musculature: No muscle atrophy or muscle edema. Subcutaneous and Soft Tissues: No subcutaneous or soft tissue mass, edemaor fluid collection. Neurovascular Structures: Normal. IMPRESSION: 1. High-grade radial tear in the posterior horn of the medial meniscusnear the root attachment with fossa hoop stress. 2. Mild chondromalacia centrally in the medial compartment. 3. Mild chondromalacia centrally and posteriorly in the lateralcompartment. 4. Focal areas of moderate to full-thickness chondromalacia in thepatellofemoral compartment. 5. Moderate to large knee joint effusion with mild synovitis and tinypopliteal cyst. Dictated by Og Vergara MD @ 09/01/2024 9:29:45 AM (Electronically Signed) Madan Lima MD MR * US VENOUS LOWER EXTREMITY LEFT (07/13/2024 3:25 PM CDT) Anatomical Region Laterality Modality LEGS, LEG L, Abdomen Ultrasound 07/13/2024 3:43 PM CDT Impressions 07/13/2024 3:43 PM CDT Normal left lower extremity venous ultrasound, no sign of deep venous thrombosis. Dictated by Ricardo Tavera MD @ 07/13/2024 3:43:08 PM (Electronically Signed) Narrative 07/13/2024 3:43 PM CDT For Patients: As a result of the Cures Act, medical imaging exams and procedure reports are released immediately into your electronic medical record. You may view this report before your referring provider. If you have questions, please contact your health care provider. INDICATION: Left leg swelling TECHNIQUE: Ultrasound venous duplex lower left extremity. Compression venous exam was performed using adorno-scale, color Doppler, and spectral Doppler analysis. COMPARISON: None. FINDINGS: Sonographic imaging demonstrates the left common femoral, deep femoral, superficial femoral, popliteal, posterior tibial and greater saphenous and the contralateral right common femoral veins to be fully compressible with normal color Doppler blood flow. Procedure Note Ricardo Tavera MD - 07/13/2024 For Patients: As a result of the s , medical imagingexams and procedure reports are released immediately into your electronicmedical record. You may view this report before your referring provider.If you have questions, please contact your health care provider. INDICATION: Left leg swelling TECHNIQUE: Ultrasound venous duplex lower left extremity. Compression venous examwas performed using adorno-scale, color Doppler, and spectral Doppleranalysis. COMPARISON: None. FINDINGS: Sonographic imaging demonstrates the left common femoral, deep femoral,superficial femoral, popliteal, posterior tibial and greater saphenous andthe contralateral right common femoral veins to be fully compressible withnormal color Doppler blood flow. IMPRESSION: Normal left lower extremity venous ultrasound, no sign of deep venousthrombosis. Dictated by Ricardo Tavera MD @ 07/13/2024 3:43:08 PM (Electronically Signed) Latoniaartemio Huber TAB BUILDER US * XR KNEE 3 VIEWS LEFT (07/13/2024 2:02 PM CDT) Anatomical Region Laterality Modality KNEES, KNEE L Computed Radiogr aphy 07/13/2024 2:33 PM CDT Narrative 07/13/2024 2:33 PM CDT For Patients: As a result of the 21st Century Cures Act, medical imaging exams and procedure reports are released immediately into your electronic medical record. You may view this report before your referring provider. If you have questions, please contact your health care provider. Indication: Left leg swelling. Technique: Left knee 3 views Comparison: None Findings: Bones: Alignment is normal. Small density projecting medial intercondylar space without an evident donor site. No definite fractures or bone lesions. Joint spaces: Small knee joint effusion. Patellofemoral joint space. Small medial compartment and lateral compartment osteophytes. Soft tissues: Unremarkable. Impression: No definite acute fracture. Small density projecting medial intercondylar space without an evident donor site is indeterminate, could reflect an intra-articular loose body. Small knee joint effusion. Dictated by Timothy Black MD @ 07/13/2024 2:33:30 PM (Electronically Signed) Procedure Note Timothy Black MD - 07/13/2024 For Patients: As a result of the Cures Act, medical imagingexams and procedure reports are released immediately into your electronicmedical record. You may view this report before your referring provider.If you have questions, please contact your health care provider. Indication: Left leg swelling. Technique: Left knee 3 views Comparison: None Findings: Bones: Alignment is normal. Small density projecting medial intercondylarspace without an evident donor site. No definite fractures or bonelesions. Joint spaces: Small knee joint effusion. Patellofemoral joint space. Smallmedial compartment and lateral compartment osteophytes. Soft tissues: Unremarkable. Impression: No definite acute fracture. Small density projecting medial intercondylar space without an evidentdonor site is indeterminate, could reflect an intra-articular loose body.Small knee joint effusion. Dictated by Timothy Black MD @ 07/13/2024 2:33:30 PM (Electronically Signed) Latonia Huber TAB BUILDER GENERAL IMAGING * CBC WITH AUTO DIFFERENTIAL (07/13/2024 1:48 PM CDT) WHITE BLOOD COUNT 8.2 4.5 - 11.0 thou/cu mm 07/13/2024 2:07 PM CDT [facility] RED BLOOD COUNT 4.51 4.00 - 5.20 mil/cu mm 07/13/2024 2:07 PM [facility] HEMOGLOBIN 13.8 12.0 - 16.0 g/dL 07/13/2024 2:07 PM [facility] HEMATOCRIT 42.0 33.0 - 51.0 % 07/13/2024 2:07 PM [facility] MCV 93 80 - 100 fL 07/13/2024 2:07 PM [facility] MCH 30.6 26.0 - 34.0 pg 07/13/2024 2:07 PM [facility] MCHC 32.9 32.0 - 36.0 g/dL 07/13/2024 2:07 PM [facility] RDW 12.7 11.5 - 15.5 % 07/13/2024 2:07 PM [facility] PLATELET COUNT 325 140 - 440 thou/cu mm 07/13/2024 2:07 PM [facility] MPV 9.9 6.5 - 11.0 fL 07/13/2024 2:07 PM [facility] % NEUT 66.1 % 07/13/2024 2:07 PM [facility] % LYMPH 24.1 % 07/13/2024 2:07 PM [facility] % MONO 5.7 % 07/13/2024 2:07 PM [facility] % EOS 3.7 % 07/13/2024 2:07 PM [facility] % BASO 0.4 % 07/13/2024 2:07 PM [facility] ABSOLUTE NEUTROPHILS 5.4 1.7 - 7.0 thou/cu mm 07/13/2024 2:07 PM [facility] ABSOLUTE LYMPHOCYTES 2.0 0.9 - 2.9 thou/cu mm 07/13/2024 2:07 PM [facility] ABSOLUTE MONOCYTES 0.5 <0.9 thou/cu mm 07/13/2024 2:07 PM [facility] ABSOLUTE EOSINOPHILS 0.3 <0.5 thou/cu mm 07/13/2024 2:07 PM [facility] ABSOLUTE BASOPHILS 0.0 <0.3 thou/cu mm 07/13/2024 2:07 PM [facility] Blood BLOOD SPECIMEN / Unknown Venipuncture / Unknown 07/13/2024 1:48 PM CDT 07/13/2024 1:48 PM CDT Latonia E Mayo TAB BUILDER HEMATOLOGY [facility] [address] [place] [address] * (ABNORMAL) COMP METABOLIC PANEL (07/13/2024 1:48 PM CDT) SODIUM 141 136 - 145 mmol/L 07/13/2024 2:26 PM [facility] POTASSIUM 3.5 3.5 - 5.1 mmol/L 07/13/2024 2:26 PM [facility] CHLORIDE 103 98 - 107 mmol/L 07/13/2024 2:26 PM [facility] CO2,TOTAL 31(H) 22 - 29 mmol/L 07/13/2024 2:26 PM [facility] ANION GAP 7 5 - 18 07/13/2024 2:26 PM [facility] GLUCOSE 117(H) 70 - 99 mg/dL 07/13/2024 2:26 PM [facility] CALCIUM 9.8 8.8 - 10.2 mg/dL 07/13/2024 2:26 PM [facility] BUN 19 8 - 23 mg/dL 07/13/2024 2:26 PM [facility] CREATININE 0.58 0.50 - 0.90 mg/dL 07/13/2024 2:26 PM [facility] BUN/CREAT RATIO 33(H) 10 - 20 2:26 PM [facility] eGFR >90 >90 mL/min/1.7 3m2 07/13/2024 2:26 PM [facility] Comment:As of 2022, eG FR is calculated by the CKD-EPI creatinine equation without race adjustment. eGFR can be influenced by muscle mass, exercise, and diet. The reported eGFR is an estimation only and is only applicable if the renal function is stable. ALBUMIN 4.6 4.0 - 4.9 g/dL 07/13/2024 2:26 PM T [facility] PROTEIN,TOTAL 7.9 6.0 - 8.0 g/dL 07/13/2024 2:26 PM T [facility] BILIRUBIN,TOTAL 0.3 0.0 - 1.2 mg/dL 07/13/2024 2:26 PM T [facility] ALK PHOSPHATASE 44 35 - 104 IU/L 07/13/2024 2:26 PM [facility] ALT (SGPT) 13 10 - 35 IU/L 07/13/2024 2:26 PM [facility] AST (SGOT) 27 10 - 35 IU/L 07/13/2024 2:26 PM [facility] Blood BLOOD SPECIMEN / Unknown Venipuncture / Unknown 07/13/2024 1:48 PM CDT 07/13/2024 1:48 PM CDT Latonia E Mayo TAB BUILDER CHEMISTRY [facility] [address] [place] [address] * (ABNORMAL) LIPID PANEL W REFLEX MEASURED LDL (05/17/2024 11:13 AM CDT) CHOLESTEROL,TOTAL 155 100 - 199 mg/dL 05/17/2024 11:47 AM T [facility] Comment: Cholesterol, Total Reference Ranges Desirable <200 mg/dL Borderline 200-239 mg/dL High >=240 mg/dL TRIGLYCERIDES 181(H) <150 mg/dL 05/17/2024 11:47 AM T [facility] HDL CHOLESTEROL 46 >40 mg/dL 11:47 AM T [facility] NON-HDL CHOLESTEROL 109 <145 mg/dl 05/17/2024 11:47 AM CDT [facility] CHOL/HDL RATIO 3.37 <4.50 05/17/2024 11:47 AM CDT [facility] LDL CHOLESTEROL 73 <=130 mg/dL 05/17/2024 11:47 AM T [facility] VLDL CHOLESTEROL 36(H) <=30 mg/dL 05/17/2024 11:47 AM CDT [facility] PROVIDER ORDERED STATUS RANDOM 05/17/2024 11:47 AM CDT [facility] Blood BLOOD SPECIMEN / Unknown Venipuncture / Unknown 05/17/2024 11:13 AM CDT 05/17/2024 11:13 AM CDT Christiane Aaron MD CHEMISTRY [facility] [address] [place] [address] * XR MAMMO OMAR UNI ADDL VIEWS LEFT (12/09/2023 10:40 AM GRINDER SET UP OPERATOR THREAD) Anatomical Region Laterality Modality BREASTS, Breast Left Mammography , Other 12/09/2023 11:4 8 AM GRINDER SET UP OPERATOR THREAD Impressions 12/10/2023 9:04 AM GRINDER SET UP OPERATOR THREAD Well-circumscribed density in the inferomedial LEFT breast, 3 cm from the nipple, may represent a cyst with internal echoes or possibly a small fibroadenoma but does not meet the strict criteria for benign cyst. Recommend correlation with aspiration/biopsy. Results were discussed with the patient who elected to proceed with the procedure today. BI-RADS Category 4: Suspicious Dictated by: Adam Mary MD @12/09/2023 11:48:42 AM / CRL:[email or web address] PATIENTS: You will also receive a letter with your examination results in an easy to read format. If you have questions about your results, please contact your referring provider. Narrative 12/10/2023 9:04 AM GRINDER SET UP OPERATOR THREAD For Patients: As a result of the Cures Act, medical imaging exams and procedure reports are released immediately into your electronic medical record. You may view this report before your referring provider. If you have questions, please contact your health care provider. ADDITIONAL VIEWS LEFT DIGITAL MAMMOGRAM USING TOMOSYNTHESIS, 12/09/2023 LEFT BREAST ULTRASOUND, 12/09/2023 INDICATION: Possible asymmetry inferior LEFT breast noted on screening mammogram of 12/03/2023. TECHNIQUE: Diagnostic LEFT mammogram with tomosynthesis, and LEFT breast ultrasound. FINDINGS: There are areas of scattered fibroglandular density in the LEFT breast. Small oblong density persists in the inferomedial LEFT breast 3 cm from the nipple. On ultrasound this measures 7 x 8 x 3 mm is well-circumscribed and is hypoechoic. It is difficult to be certain if this is anechoic. There is a smaller anechoic cyst more medial in the LEFT breast. Christiane Aaron MD MAMMO * COLONOSCOPY (09/02/2023 8:59 AM CDT) 09/02/2023 8:59 AM CDT Narrative Transcriptions Rocky Wheatley DO - 09/02/2023 9:41 AM CDT Patient Name: Sarai Manning Procedure Date: 09/02/2023 Gender: Female Date of : 1950 Admit Type: Ambulatory Procedure: Colonoscopy Proceduralist: Rocky Wheatley MD [facility] Referring MD: Christiane Aaron MD Indications/Pre-Op Diagnosis: High risk colon cancer surveillance:Personal history of colonic polyps, Last colonoscopy5 years ago Medications: Propofol per Anesthesia Procedure Description: The patient had risks, benefits and alternatives explained to andgave informed consent. The patient had a stable cardiopulmonary status and judged an adequate candidate for conscious sedation. The endoscope -[id number] was passed through the anus andadvanced to the cecum, identified by appendiceal orifice and ileocecal valve.The colonoscopy was performed without difficulty. The patient toleratedthe procedure well. The quality of the bowel preparation was good. The ileocecal valve, appendiceal orifice, and rectum were photographed. Complications: No immediate complications. Estimated Blood Loss & Specimen: Estimated blood loss: none. Specimen collected - Yes and sent to Laboratory Findings: Two sessile polyps were found in the rectum. The polyps were 3 to 4mm in size. These polyps were removed with a hot snare. Resection and retrieval were complete. Verification of patient identification forthe specimen was done. Estimated blood loss was minimal. Many medium-mouthed diverticula were found in the sigmoid colon. Impressions/Post-Op Diagnosis: - Two 3 to 4 mm polyps in the rectum, removed with a hot snare.Resected and retrieved. - Diverticulosis in the sigmoid colon. Recommendation: - Discharge patient to home. - Patient has a contact number available for emergencies. The signsand symptoms of potential delayed complications were discussed with the patient. Return to normal activities tomorrow. Written discharge instructions were provided to the patient. - High fiber diet. - Continue present medications. - Await pathology results. - Repeat colonoscopy in 5 years for surveillance. Moderate Sedation: Moderate (conscious) sedation was personally administered by an anesthesia professional. The following parameters were monitored:oxygen saturation, heart rate, blood pressure, and response to care. Rocky Wheatley MD 09/02/2023 9:41:32 AM This report has been signed electronically. Note Initiated On: 09/02/2023 8:59 AM Rocky Wheatley DO PROCEDURE ORD * ANTI HCV [96332.2] (04/22/2018 10:39 AM CDT) HEPATITIS C ANTIBODY Non-React ivanna Non-React ivanna 04/22/2018 5:21 PM CDT [facility] Comment:Antibodies to HCV no t detected; does not exclude the possibility of exposure to HCV. Blood BLOOD SPECIMEN / Unknown Venipuncture / Unknown 04/22/2018 10:39 AM CDT 04/22/2018 10:39 AM CDT Christiane Aaron MD SEND OUTS [facility] [address] [place] [address], [place] * XR DXA BONE DENSITY 2 SITES AXIAL [25290.1] (04/25/2017 2:34 PM CDT) Anatomical Region Laterality Modality Spine, HIPS, HIPL, HIPR Bone Den sitometry Narrative 04/29/2017 3:21 PM CDT Please see scanned document for results of this study. 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 [place] [id number] PCP - General 11/18/06
[2024-10-07] MEDS: SODIUM CHLORIDE 0.9 % (FLUSH) 10 ML SYRINGE IVF (09:11)
[2024-10-07] MEDS: CEFAZOLIN 2 GM INJ IVP (11:00)
--- NOTE | 2024-10-07 11:56 | PM.ORPRC ---
Procedure Note Date of procedure: 10/07/24 Procedure: PREOPERATIVE DIAGNOSIS: Left knee medial meniscus root tear POSTOPERATIVE DIAGNOSIS: Left knee medial meniscus root tear NAME OF OPERATION: Left knee arthroscopic medial meniscus root repair, microfracture of the notch SURGEON: Madan Lima MD OSTEOPATHIC MEDICINE TEACHER: ARABELLA Dawn ANESTHESIA: Spinal ESTIMATED BLOOD LOSS: 0 mL COMPLICATIONS: None SPECIMENS: None DRAINS: None PREOPERATIVE ANTIBIOTICS: Ancef 2 gram INDICATIONS: The patient is a 74-year-old female with a history of left knee medial pain. MRI scan is consistent with a medial meniscus root tear. Despite appropriate nonoperative management, including activity modification, antiinflammatories, [id number] pain medication, bracing, physical therapy, and injections they continue to have pain and disability. Operative intervention was offered. The risks, benefits and expected outcomes were discussed in detail. These included but were not limited to: Infection, bleeding, injury to blood vessel or nerve, venous thromboembolism. All questions were answered to their satisfaction. PROCEDURE: Spinal anesthesia was administered. The patient was placed supine on the operating room table. The left lower extremity was prepped and draped in the usual sterile fashion. The limb was exsanguinated with the Chandrakant bandage. The pneumatic tourniquet was inflated to 300 mmHg. A standard anterolateral portal was established. The arthroscope was introduced. The working portal was established anteromedially. Diagnostic arthroscopy was performed with findings as follows: The suprapatellar pouch is normal. Articular surface on the patella shows grade 1/2 change. Articular surface on the trochlea shows focal grade 3/4 change distally. The medial gutter is normal. The medial compartment shows diffuse grade 2 change on the medial femoral condyle, grade 2 change on the medial tibial plateau. The medial meniscus has a radial tear of the posterior horn from the leading edge to the capsule (root tear). The notch shows the ACL to be intact. The lateral compartment shows normal articular cartilage on the lateral femoral condyle and lateral tibial plateau. The lateral meniscus is normal. The lateral gutter is normal. The posterior horn of the medial meniscus was debrided to a stable base using a combination of basket and shaver through both portals. Unstable chondral flaps on the medial femoral condyle were debrided with the shaver. The knee scorpion was used to pass a fiber link x 2 in the posterior horn of the medial meniscus. The tibial drill guide was used over the footprint of the root. A longitudinal incision over the anteromedial face of the tibia was placed. The flip cutter was drilled into the footprint. The flip cutter was flipped and back cut 10 mm. It was removed and exchanged for a fiber stick. The fiber stick was brought out the anteromedial portal and was used to shuttle both of the fiber link luggage tag sutures on the posterior horn out the anteromedial tibia. We then tensioned the sutures and fixed them to the tibia with a SwiveLock anchor. This provided an excellent repair of the posterior tibial attachment of the medial meniscus to its anatomic footprint. The power pick was used to microfracture the notch both medially and laterally. Arthroscopic instruments were removed, the portal sites were Steri-Stripped closed, the incision over the tibia was closed with 3-0 Vicryl and 4-0 Monocryl. A dry dressing was applied, the tourniquet was released. Sponge and needle counts were correct x 2. The patient tolerated the procedure well. There were no apparent complications. They were carefully transferred to the hospital bed and taken to the postanesthesia care unit in satisfactory condition. PLAN: The patient will be discharged to home. She can gently bear weight and be careful on the lower extremity for 6 weeks postoperatively. Range of motion will be allowed from 0-90 degrees x 2 weeks then unrestricted range of motion. She will follow up in 2 weeks for a wound check.
--- NOTE | 2024-10-07 12:14 | W.ANESCHARGE ---
Anesthesia Charges Start Date/Time Anesthesia Start Date: 10/07/24 Anesthesia Start Time: 10:53 Stop Date/Time Anesthesia Stop Date: 10/07/24 Anesthesia Stop Time: 12:11
--- NOTE | 2024-10-07 12:15 | W.PM.NB ---
Nerve Block Nerve Block Time Seen by Provider: 12:00 Date Seen: 10/07/24 Type of block requested by surgeon for post-operative analgesia: geniculars Side: left Time out performed: Yes Verification of patient name: Yes Verification of date of : Yes Site marking: site marked Name of person performing procedure: Jhoan Dodson Continuous monitoring Was continuous monitoring of O2 sat, B/P, shelter monitor, recorded every 15 minutes?: Yes Procedure Checklist: sterile prep, needles and gloves Medications given in 5ml increments after negative aspiration: Marcaine %: 0.5 mL: 15 Needle gauge: 25 Precedex (mcg): 20
--- NOTE | 2024-10-07 12:26 | W.ANESCHARGE ---
Anesthesia Charges Start Date/Time Anesthesia Start Date: 10/07/24 Anesthesia Start Time: 10:53 Stop Date/Time Anesthesia Stop Date: 10/07/24 Anesthesia Stop Time: 12:11 Summary Extremes of Age - Over 70 or under 1: MDA
[2024-10-07] MEDS: OxyCODONE/APAP 5-325 TABLET 1 TAB PO (12:46)
== END 2024-10-07 13:35 | disposition home or self-care (01) ==
LOC: OR 08:50
PROVIDERS: PCP Internal Medicine; Visit Provider Orthopaedic Surgery
PROC: (CPT 29882; principal; 2024-10-07 10:30)
DX: S83.232A Complex tear of medial meniscus, current injury, left knee, initial encounter (principal); G89.18 Other acute postprocedural pain
CPT/HCPCS: 29882; 29879; 01400; 64454; 99100; A9270; C1713; J0665; J0690; J1100; J2250; J2405; J2704; J3490